=== PATIENT | male | born 1970 | race Caucasian/White ===

== ENCOUNTER 2024-02-01 08:49 | Outpatient (CLI) | payer BC, SELFPAY ==
--- NOTE | 2024-02-01 09:15 | CRLHL7_ITS ---
For Patients: As a result of the Century Cures Act, medical imaging exams and procedure reports are released immediately into your electronic medical record. You may view this report before your referring provider. If you have questions, please contact your health care provider. Indication: Spondylosis. Technique: Multiplanar, multisequence MRI of the lumbar spine was performed without intravenous contrast. Comparison: None relevant available. Findings: There are 5 lumbar type vertebral segments identified. Chronic anterior wedging deformity of T12. There is no discrete T1 hypointense marrow infiltrating process. The conus medullaris terminates at L1-2, normal. Cauda equina appears unremarkable. T12-L1: Minimal disc bulge without spinal canal or neural foraminal narrowing. Mild facet arthropathy. L1-2: Minimal disc bulge without spinal canal or neural foraminal narrowing. Mild facet arthropathy. L2-3: No spinal canal or neural foraminal stenosis. [id number] facet arthropathy. L3-4: Facet arthropathy and ligamentum flavum thickening result in mild spinal canal narrowing. No neural foraminal narrowing. Moderate facet arthropathy. L4-5: Disc degeneration. Disc bulge combined with ligamentum flavum thickening and facet hypertrophy results in moderate spinal canal narrowing. Moderate neural foraminal narrowing. Moderate facet arthropathy. L5-S1: Disc degeneration. Disc bulge with superimposed right subarticular and foraminal disc protrusion. Protrusion compresses the descending right S1 nerves. There is moderate to severe right neural foraminal narrowing with protrusion abutting the exiting right L5 nerve. Mild left neural foraminal narrowing. Moderate facet arthropathy. Mild sacroiliac joint osteoarthritis. Impression: 1. At L5-S1, right subarticular and foraminal disc protrusion. The protrusion compresses the descending right S1 and exiting right L5 nerves. Moderate to severe right neural foraminal stenosis. 2. At L4-5, moderate spinal canal and neural foraminal stenosis. 3. Moderate to severe multilevel facet arthropathy. Dictated by Maury Machado MD @ 02/01/2024 2:55:33 PM (Electronically Signed)
== END 2024-02-01 08:50 | disposition home or self-care (01) ==
PROVIDERS: PCP Family Medicine; Visit Provider Family Medicine
DX: M47.816 Spondylosis without myelopathy or radiculopathy, lumbar region (principal); M51.27 Other intervertebral disc displacement, lumbosacral region; M48.061 Spinal stenosis, lumbar region without neurogenic claudication
CPT/HCPCS: 72148